=== PATIENT | female | born 1975 | race Caucasian/White ===

== ENCOUNTER → 2017-04-28 | Outpatient (CLI) | payer OTHER ==
--- NOTE | 2017-04-28 07:54 | US ---
EXAMINATION TYPE: US abdomen complete DATE OF EXAM: 04/28/2017 COMPARISON: NONE CLINICAL HISTORY: R94.5 Increased liver function. Elevated liver enzymes, obese patient EXAM MEASUREMENTS: Liver Length: 14.6 cm Gallbladder Wall: 0.2 cm CBD: 0.8 cm Spleen: 11.7 cm Right Kidney: 11.4 x 5.1 x 6.0 cm Left Kidney: 11.0 x 5.1 x 5.6 cm Pancreas: visualized portions wnl, limited by overlying midline bowel gas Liver: slightly course echotexture, increased echogenicity Gallbladder: multiple echogenic shadowing foci with largest measuring 1.4cm, wall measures wnl Evidence for sonographic Schwartz's sign: no CBD: dilated at 0.8cm Spleen: visualized portions wnl, limited by rib shadowing and overlying bowel gas Right Kidney: no hydronephrosis or renal masses seen Left Kidney: no hydronephrosis or renal masses seen Upper IVC: wnl Abd Aorta: visualized portions wnl, limited by overlying midline bowel gas The pancreas is obscured. The liver is normal in size without biliary dilatation. It is echogenic and may be fatty infiltrated. There are multiple gallstones within the gallbladder. The gallbladder wall measures 2 mm. The distal common hepatic duct measures 7 mm. The spleen is normal in size. Both kidneys are unremarkable. Visualized portions of aorta and IVC are unremarkable. IMPRESSION: 1. CHOLELITHIASIS. 2. DILATED DISTAL COMMON HEPATIC DUCT.
== END | disposition home or self-care (01) ==
LOC: RADUSWWP 07:14
PROVIDERS: ATTEND Family Medicine
DX: K80.20 Calculus of gallbladder without cholecystitis without obstruction (principal); K83.8 Other specified diseases of biliary tract
CPT/HCPCS: 76700

== ENCOUNTER → 2019-02-05 | Outpatient (CLI) | payer OTHER ==
--- NOTE | 2019-02-06 13:27 | MM ---
Reason for exam: screening (asymptomatic). Last mammogram was performed 3 years and 6 months ago. History: Family history of breast cancer in mother at age 50 and breast cancer in maternal grandmother. Took hormonal contraceptives for 12 years. Physical Findings: A clinical breast exam by your physician is recommended on an annual basis and results should be correlated with mammographic findings. MG 3D Screening Mammo W/Cad Bilateral CC and MLO view(s) were taken. Prior study comparison: August 18, 2015, bilateral MG screening mammo w CAD. The breast tissue is heterogeneously dense. This may lower the sensitivity of mammography. There is no discrete abnormality. No significant changes when compared with prior studies. ASSESSMENT: Negative, BI-RAD 1 RECOMMENDATION: Routine screening mammogram of both breasts in 1 year.
== END | disposition home or self-care (01) ==
LOC: RADMAMWWP 15:40
PROVIDERS: ATTEND Family Medicine
DX: Z12.31 Encounter for screening mammogram for malignant neoplasm of breast (principal)
CPT/HCPCS: 77063; 77067

== ENCOUNTER → 2022-04-26 | Outpatient (CLI) | payer OTHER ==
--- NOTE | 2022-04-27 09:19 | MM ---
Reason for Exam: Screening (asymptomatic). Last mammogram was performed 3 year(s) and 3 month(s) ago. Patient History: Menarche at age 14. First Full-Term at age 29. Patient used Hormonal Contraceptives for 12 years. Maternal grandmother had breast cancer at or over age 50. Mother had breast cancer, age 50. Risk Values: Mary 5 year model risk: 1.5%. NCI Lifetime model risk: 18.2%. Prior Study Comparison: 08/18/2015 Bilateral Screening Mammogram, [facility]. 02/05/2019 Bilateral Screening Mammogram, [facility]. Tissue Density: There are scattered fibroglandular densities. Findings: Analyzed By CAD. There is no suspicious group of microcalcifications or new suspicious mass in either breast. Overall Assessment: Negative, BI-RAD 1 Management: Screening Mammogram of both breasts in 1 year. A clinical breast exam by your physician is recommended on an annual basis and results should be correlated with mammographic findings. Electronically signed and approved by: Piter Patton M.D. Radiologis
== END | disposition home or self-care (01) ==
LOC: RADMAMWWP 07:37
PROVIDERS: ATTEND Family Medicine
DX: Z12.31 Encounter for screening mammogram for malignant neoplasm of breast (principal); Z80.3 Family history of malignant neoplasm of breast
CPT/HCPCS: 77067

== ENCOUNTER → 2024-03-06 | Outpatient (CLI) | payer OTHER ==
--- NOTE | 2024-03-08 09:33 | MM ---
Reason for Exam: Screening (asymptomatic). Last mammogram was performed 1 year(s) and 10 month(s) ago. Patient History: Menarche at age 14. First Full-Term at age 29. Patient has history of breast feeding. Patient used Hormonal Contraceptives for 12 years. Maternal grandmother had breast cancer at or over age 50. Mother had breast cancer, age 50. Last menstrual period: 03/02/2024 Risk Values: Mary 5 year model risk: 1.7%. NCI Lifetime model risk: 17.8%. Prior Study Comparison: 08/18/2015 Bilateral Screening Mammogram, [facility]. 02/05/2019 Bilateral Screening Mammogram, [facility]. 04/26/2022 Bilateral MG screening mammo w CAD, [facility]. Tissue Density: There are scattered areas of fibroglandular density. Findings: Analyzed By CAD. Right breast: There is no suspicious group of microcalcifications or new suspicious mass. Left breast: There is no suspicious group of microcalcifications or new suspicious mass. Overall Assessment: Negative, BI-RAD 1 Management: Screening Mammogram of both breasts in [address] [facility] will attempt to contact patient to return for supplemental views and ultrasound if indicated. Patient should continue monthly self-breast exams. A clinical breast exam by your physician is recommended on an annual basis. This exam should not preclude additional follow-up of suspicious palpable abnormalities. Note on Mary scores and lifetime risk: 1. A Mary score greater than 3% is considered moderate risk. If this is the case, consider specialist referral to assess eligibility for a risk reducing agent. 2. If overall lifetime risk for the development of breast cancer is 20% or higher, the patient may qualify for future screening with alternating mammogram and breast MRI. Electronically signed and approved by: Rodney Ramirez DO
== END | disposition home or self-care (01) ==
LOC: RADMAMWWP 12:39
PROVIDERS: ATTEND Family Medicine
DX: Z12.31 Encounter for screening mammogram for malignant neoplasm of breast (principal); Z80.3 Family history of malignant neoplasm of breast
CPT/HCPCS: 77067